=== PATIENT | female | born 1940 | race Caucasian/White ===

== ENCOUNTER → 2016-07-15 | Outpatient (CLI) | payer MEDICARE, OTHER | END | disposition home or self-care (01) | LOC: RAD 11:46 | PROVIDERS: ATTEND Internal Medicine | DX: J18.9 Pneumonia, unspecified organism (principal); J44.9 Chronic obstructive pulmonary disease, unspecified; I70.0 Atherosclerosis of aorta | CPT/HCPCS: 71020 ==

== ENCOUNTER 2017-08-14 09:31 | Day surgery (SDC) | payer MEDICARE, OTHER ==
[~2017-08-14] VITALS: Ht 154.9 cm; Wt 72.7 kg
[2017-08-14] MEDS ORDERED: SODIUM CHLORIDE 0.9% 1,000 ML IV ONE (09:56)
[2017-08-14 10:00] VITALS: BP 149/61
[2017-08-14] MEDS ORDERED: GLUC1TAB55 PO (10:29)
[2017-08-14] MEDS ORDERED: NITR100C56 PO (10:29)
[2017-08-14] MEDS ORDERED: LISI-170 PO (10:29)
[2017-08-14] MEDS ORDERED: SOTA80TA PO (10:29)
[2017-08-14] MEDS ORDERED: POTA10CA PO (10:29)
[2017-08-14] MEDS ORDERED: CALC1TAB58 PO (10:29)
[2017-08-14] MEDS ORDERED: PYRI100T2 PO (10:29)
[2017-08-14] MEDS ORDERED: CHOL5000 PO (10:29)
[2017-08-14] MEDS ORDERED: MULT-658 PO (10:29)
[2017-08-14] MEDS ORDERED: METO25TA91 PO (10:29)
[2017-08-14] MEDS ORDERED: LACT1CAP5 PO (10:29)
[2017-08-14] MEDS ORDERED: FOLI-17 PO (10:29)
[2017-08-14] MEDS ORDERED: ALBU8.5H8 INH (10:29)
[2017-08-14] MEDS ORDERED: FLUT12HF2 INH (10:29)
[2017-08-14] MEDS ORDERED: CYAN100074 PO (10:29)
[2017-08-14] MEDS ORDERED: IBRU140C PO (10:29)
[2017-08-14] MEDS ORDERED: WARF4TAB7 PO (10:29)
[2017-08-14] MEDS ORDERED: OMEP20TA62 PO (10:29)
[2017-08-14] MEDS ORDERED: CHLO25TA PO (10:29)
[2017-08-14] MEDS ORDERED: PLEASE ENTER HEIGHT AND WEIGHT MC SCH (10:30)
[2017-08-14 10:58] LABS: MEAN CORPUSCULAR HEMOGLOBIN 32.2 pg (27.0-34.8); MEAN CORPUSCULAR HGB CONC 33.3 g/dL (32.4-35.8); MEAN CORPUSCULAR VOLUME 96.9 fL (80-100); MEAN PLATELET VOLUME 9.9 fL (7.4-10.4); PLATELET COUNT 252 x10^3/uL (130-400); RED BLOOD COUNT 4.87 x10^6/uL (3.82-5.3); RED CELL DISTRIBUTION WIDTH 15.4 % (9.6-15.2)
[2017-08-14] MEDS ORDERED: VERAPAMIL 2.5 MG/ML, 2ML ONE (10:59)
[2017-08-14] MEDS ORDERED: NITROGLYCERIN 5 MG/ML, 10ML ONE (10:59)
[2017-08-14] MEDS ORDERED: FENTANYL PF 100 MCG/2ML ONE (10:59)
[2017-08-14] MEDS ORDERED: MIDAZOLAM 1 MG/ML, 5ML ONE (10:59)
[2017-08-14] MEDS ORDERED: HEPARIN 1,000 UNITS/ML, 10ML ONE (10:59)
[2017-08-14] MEDS ORDERED: LIDOCAINE 2%, 2ML ONE (11:00)
[2017-08-14 11:05] LABS: INTERNATIONAL NORMALIZED RATIO 1.85 (0.93-1.1); PROTHROMBIN TIME 18.8 Seconds (9.6-11.5)
[2017-08-14 11:08] LABS: ANION GAP 5 mmol/L (5-15); CALCIUM 10.7 mg/dL (8.5-10.1); CHLORIDE 106 mmol/L (98-107); CREATININE 1.29 mg/dL (0.55-1.02)
[2017-08-14 11:40] LABS: BASOPHILS # (AUTO) 0.04 x10^3/uL (0-0.1); BASOPHILS % (AUTO) 0 % (0-1); EOSINOPHILS # (AUTO) 0.19 x10^3/uL (0-0.4); EOSINOPHILS % (AUTO) 2 % (1-7); LYMPHOCYTES # (AUTO) 2.55 x10^3/uL (1-3.4); LYMPHOCYTES % (AUTO) 29 % (22-44); MD SCAN; MONOCYTES % (AUTO) 17 % (2-9); NEUTROPHILS # (AUTO) 4.57 x10^3/uL (1.8-6.8); NEUTROPHILS % (AUTO) 52 % (42-75)
[2017-08-14] MEDS ORDERED: SODIUM CHLORIDE 0.9% 1,000 ML IV SCH (11:52)
== END 2017-08-14 14:22 ==
LOC: CACL 09:31
PROVIDERS: ATTEND Internal Medicine Cardiovascular Disease
DX: I27.20 Pulmonary hypertension, unspecified (principal); I48.0 Paroxysmal atrial fibrillation; I35.0 Nonrheumatic aortic (valve) stenosis; I10 Essential (primary) hypertension; Z91.030 Bee allergy status
CPT/HCPCS: 36415; 80048; 85025; 85610; 85730; 93456; 99156; C1769; C1894; J1644; J2250; J3010; J3490; Q9967

== ENCOUNTER 2017-09-05 07:21 | Inpatient (IN) | payer MEDICARE, OTHER ==
[~2017-09-05] VITALS: Ht 154.9 cm; Wt 76.4 kg
[~2017-09-05 07:21] MED LIST: ALBU8.5H8 INH; CALC1TAB58 PO; CHLO25TA PO; CHOL5000 PO; CYAN100074 PO; FLUT12HF2 INH; FOLI-17 PO; GLUC1TAB55 PO; IBRU140C PO; LACT1CAP5 PO; LISI-170 PO; METO25TA91 PO; MULT-658 PO; NITR100C56 PO; OMEP20TA62 PO; POTA10CA PO; PYRI100T2 PO; SOTA80TA PO; WARF4TAB65 PO
[2017-09-05] MEDS ORDERED: SODIUM CHLORIDE 0.9% 1,000 ML IV ONE (07:46)
[2017-09-05] MEDS ORDERED: CHLORHEXIDINE 15 ML BOTTLE MM PRN (08:00)
[2017-09-05] MEDS ORDERED: ONDANSETRON 2MG/ML, 2ML IVPush PRN (08:00)
[2017-09-05 08:16] VITALS: BP 154/69
[2017-09-05 08:30] LABS: ALANINE AMINOTRANSFERASE 29 U/L (12-78); ALBUMIN 3.9 g/dL (3.4-5.0); ANION GAP 8 mmol/L (5-15); CALCIUM 11.3 mg/dL (8.5-10.1); CHLORIDE 109 mmol/L (98-107); CREATININE 1.21 mg/dL (0.55-1.02)
[2017-09-05] MEDS ORDERED: PLEASE ENTER ALLERGIES MC SCH (08:30)
[2017-09-05] MEDS ORDERED: PLEASE ENTER HEIGHT AND WEIGHT MC SCH (08:30)
[2017-09-05 08:31] LABS: INTERNATIONAL NORMALIZED RATIO 1.29 (0.93-1.1); PROTHROMBIN TIME 13.3 Seconds (9.6-11.5)
[2017-09-05 08:33] LABS: ALKALINE PHOSPHATASE 71 U/L (45-117); BILIRUBIN,TOTAL 0.5 mg/dL (0.2-1.0); TOTAL PROTEIN 7.3 g/dL (6.4-8.2)
[2017-09-05 08:34] LABS: MEAN CORPUSCULAR HEMOGLOBIN 32.6 pg (27.0-34.8); MEAN CORPUSCULAR HGB CONC 33.3 g/dL (32.4-35.8); MEAN CORPUSCULAR VOLUME 98.1 fL (80-100); MEAN PLATELET VOLUME 9.2 fL (7.4-10.4); PLATELET COUNT 285 x10^3/uL (130-400); RED BLOOD COUNT 4.71 x10^6/uL (3.82-5.3); RED CELL DISTRIBUTION WIDTH 15.5 % (9.6-15.2)
[2017-09-05 09:02] LABS: MD YES
[2017-09-05 09:33] LABS: <PLATELET ESTIMATE> ADEQUATE; <PLT MORPHOLOGY> NORMAL PLT MORPH; <RBC MORPHOLOGY> NORMAL; EOS#(MANUAL) 0.16 x10^3/uL (0.0-0.4); EOS% (MANUAL) 2 % (1-7); LYMPH#(MANUAL) 3.56 x10^3/uL (1-3.4); LYMPHS% (MANUAL) 44 % (22-44); MONOS#(MANUAL) 2.11 x10^3/uL (0.3-2.7); MONOS% (MANUAL) 26 % (2-9); SEG#(MANUAL) 2.27 x10^3/uL (1.8-6.8); SEGS% (MANUAL) 28 % (42-75)
[2017-09-05 09:34] LABS: HOWELL-JOLLY BODIES 1+
[2017-09-05] MEDS ORDERED: FENTANYL PF 250 MCG/5ML ONE (09:58)
[2017-09-05] MEDS ORDERED: SUCCINYLCHOLINE 20 MG/ML, 10ML ONE (10:18)
[2017-09-05] MEDS ORDERED: PROPOFOL 10 MG/ML, 20ML ONE (10:18)
[2017-09-05] MEDS ORDERED: CEFAZOLIN 1,000 MG ONE (10:18)
[2017-09-05] MEDS ORDERED: ROCURONIUM 10 MG/ML,10ML ONE (10:47)
[2017-09-05] MEDS ORDERED: DEXAMETHASONE 4 MG/ML, 1ML ONE (10:47)
[2017-09-05] MEDS ORDERED: SODIUM CHLORIDE 0.9% 1,000 ML IV SCH (11:55)
[2017-09-05] MEDS ORDERED: DEXTROSE 50%, 50ML SYRINGE IVPush PRN (12:00)
[2017-09-05] MEDS: SODIUM CHLORIDE FLUSH 10ML SYR IVF SCH ×2 (12:00→21:05)
[2017-09-05] MEDS ORDERED: GLUCAGON 1 MG IM PRN (12:00)
[2017-09-05] MEDS ORDERED: DEXTROSE 4 GM TAB.CHEW PO PRN (12:00)
[2017-09-05] MEDS: ALBUTEROL SULFATE 2.5 MG/3 ML NPPB SCH ×3 (13:00→21:00)
[2017-09-05] MEDS ORDERED: ENALAPRILAT 1.25 MG/ML, 2ML ONE (14:18)
[2017-09-05] MEDS ORDERED: HYDROcodone/APAP 5/325 TABLET ONE (14:19)
[2017-09-05] MEDS: HYDROcodone/APAP 5/325 TABLET PO PRN ×2 (14:26→17:50)
[2017-09-05] MEDS ORDERED: ENALAPRILAT 1.25 MG/ML, 2ML IV PRN (14:30)
[2017-09-05] MEDS ORDERED: LABETALOL 5MG/ML, 20ML IVPush PRN (14:30)
[2017-09-05] MEDS ORDERED: AMLODIPINE 5 MG TABLET ONE (14:57)
[2017-09-05] MEDS ORDERED: AMLODIPINE 5 MG TABLET PO ONE (15:00)
[2017-09-05] MEDS: CHLORTHALIDONE 25 MG TABLET PO SCH (18:37)
[2017-09-05] MEDS: SOTALOL 80MG TABLET PO SCH (20:52)
[2017-09-05] MEDS: LISINOPRIL 20 MG TABLET PO SCH (21:06)
[2017-09-06] MEDS: ALBUTEROL SULFATE 2.5 MG/3 ML NPPB SCH (01:00)
[2017-09-06 04:00] VITALS: BP 118/42
[2017-09-06 04:38] LABS: ALBUMIN 2.8 g/dL (3.4-5.0); ANION GAP 7 mmol/L (5-15); CALCIUM 8.9 mg/dL (8.5-10.1); CHLORIDE 111 mmol/L (98-107)
[2017-09-06 04:40] LABS: MEAN CORPUSCULAR HEMOGLOBIN 33.2 pg (27.0-34.8); MEAN CORPUSCULAR HGB CONC 33.6 g/dL (32.4-35.8); MEAN CORPUSCULAR VOLUME 98.7 fL (80-100); MEAN PLATELET VOLUME 9.1 fL (7.4-10.4); PLATELET COUNT 182 x10^3/uL (130-400); RED BLOOD COUNT 3.26 x10^6/uL (3.82-5.3); RED CELL DISTRIBUTION WIDTH 15.3 % (9.6-15.2)
[2017-09-06 04:41] LABS: CREATININE 0.91 mg/dL (0.55-1.02)
[2017-09-06] MEDS ORDERED: ALBUTEROL SULFATE 2.5 MG/3 ML NPPB PRN (05:00)
[2017-09-06 05:01] LABS: BASOPHILS # (AUTO) 0.05 x10^3/uL (0-0.1); BASOPHILS % (AUTO) 0 % (0-1); EOSINOPHILS # (AUTO) 0.01 x10^3/uL (0-0.4); EOSINOPHILS % (AUTO) 0 % (1-7); LYMPHOCYTES # (AUTO) 1.95 x10^3/uL (1-3.4); LYMPHOCYTES % (AUTO) 16 % (22-44); MD SCAN; MONOCYTES # (AUTO) 1.58 x10^3/uL (0.2-0.8); MONOCYTES % (AUTO) 13 % (2-9); NEUTROPHILS # (AUTO) 8.97 x10^3/uL (1.8-6.8); NEUTROPHILS % (AUTO) 71 % (42-75)
[2017-09-06] MEDS ORDERED: OMEPRAZOLE 20 MG CAPSULE.DR PO SCH (07:30)
[2017-09-06] MEDS: SOTALOL 80MG TABLET PO SCH (08:34)
[2017-09-06] MEDS ORDERED: MULTIVITAMIN 1 TABLET PO SCH (09:00)
[2017-09-06] MEDS ORDERED: CLOPIDOGREL 75 MG TABLET PO SCH (09:00)
[2017-09-06] MEDS ORDERED: LACTOBACILLUS CHEW TABLET PO SCH (09:00)
[2017-09-06] MEDS ORDERED: CHOLECALCIFEROL 1,000 UNIT TABLET PO SCH (09:00)
[2017-09-06] MEDS ORDERED: CALCIUM/VITAMIN D3 250-125 TABLET PO SCH (09:00)
[2017-09-06] MEDS ORDERED: POTASSIUM CHLORIDE 10 MEQ TABLET.ER PO SCH (09:00)
[2017-09-06] MEDS ORDERED: TEMPLATE NON-FORMULARY MED. (Glucosamine/D3/Boswellia Serra** (Osteo Bi-Flex Caplet**) 1 T PO SCH (09:00)
[2017-09-06] MEDS ORDERED: ASPIRIN 81 MG TABLET EC PO SCH (09:00)
[2017-09-06] MEDS ORDERED: IBRUTINIB 140 MG PO SCH (09:00)
[2017-09-06] MEDS ORDERED: PYRIDOXINE 50MG TABLET PO SCH (09:00)
[2017-09-06] MEDS ORDERED: FOLIC ACID 1 MG TABLET PO SCH (09:00)
[2017-09-06] MEDS: CHLORTHALIDONE 25 MG TABLET PO SCH (11:13)
[2017-09-06] MEDS: LISINOPRIL 20 MG TABLET PO SCH (11:22)
[2017-09-06] MEDS: SODIUM CHLORIDE FLUSH 10ML SYR IVF SCH (11:22)
[2017-09-06] MEDS ORDERED: CLOP75TA PO (12:45)
[2017-09-06 14:00] VITALS: BP 114/77
== END 2017-09-06 18:16 | disposition home or self-care (01) | DRG 266 ==
LOC: ORIP 07:21 → CCU 12:36 → 5SO 09-06 11:57
PROVIDERS: ADMIT Internal Medicine Cardiovascular Disease; ATTEND Internal Medicine Cardiovascular Disease
PROC: B246ZZ4 Ultrasonography of Right and Left Heart, Transesophageal (ICD-10-PCS; 2017-09-05)
PROC: 5A1223Z Performance of Cardiac Pacing, Continuous (ICD-10-PCS; 2017-09-05)
PROC: 02RF38Z Replacement of Aortic Valve with Zooplastic Tissue, Percutaneous Approach (ICD-10-PCS; principal; 2017-09-05 10:00)
DX: I35.0 Nonrheumatic aortic (valve) stenosis (principal); Z00.6 Encounter for examination for normal comparison and control in clinical research program; I50.33 Acute on chronic diastolic (congestive) heart failure; I44.2 Atrioventricular block, complete; D68.69 Other thrombophilia; I50.32 Chronic diastolic (congestive) heart failure; I48.0 Paroxysmal atrial fibrillation; J44.9 Chronic obstructive pulmonary disease, unspecified; I11.0 Hypertensive heart disease with heart failure; Z88.8 Allergy status to other drugs, medicaments and biological substances; I45.9 Conduction disorder, unspecified; Z79.01 Long term (current) use of anticoagulants; Z86.718 Personal history of other venous thrombosis and embolism; Z87.891 Personal history of nicotine dependence
CPT/HCPCS: 33361; 36415; 80048; 80053; 82040; 85025; 85347; 85610; 85730; 86850; 86900; 86923; 87081; 93005; 93306; 93312; 93321; 93325; 93355; 94640; C1760; C1769; C1894; J0690; J1100; J2704; J3010; J7613; J0330; J7030; Q9967

== ENCOUNTER → 2017-11-06 | Outpatient (CLI) | payer MEDICARE, OTHER ==
[~2017-11-06] MED LIST changes: +CLOP75TA PO
== END | disposition home or self-care (01) ==
LOC: CVU 11:55
PROVIDERS: ATTEND Internal Medicine Cardiovascular Disease
DX: I35.1 Nonrheumatic aortic (valve) insufficiency (principal); I34.0 Nonrheumatic mitral (valve) insufficiency; I10 Essential (primary) hypertension; Z85.6 Personal history of leukemia
CPT/HCPCS: 93306

== ENCOUNTER 2018-01-29 14:43 | Inpatient (IN) | payer MEDICARE, OTHER ==
[~2018-01-29] VITALS: Ht 154.9 cm; Wt 74.0 kg
[2018-01-29 15:23] LABS: MEAN CORPUSCULAR HEMOGLOBIN 31.6 pg (27.0-34.8); MEAN CORPUSCULAR HGB CONC 32.6 g/dL (32.4-35.8); MEAN CORPUSCULAR VOLUME 96.8 fL (80-100); PLATELET COUNT 193 x10^3/uL (130-400); RED BLOOD COUNT 4.27 x10^6/uL (3.82-5.3); RED CELL DISTRIBUTION WIDTH 15.1 % (9.6-15.2)
[2018-01-29 15:32] LABS: ALANINE AMINOTRANSFERASE 27 U/L (12-78); ALBUMIN 3.8 g/dL (3.4-5.0); ANION GAP 7 mmol/L (5-15); CALCIUM 9.6 mg/dL (8.5-10.1); CHLORIDE 108 mmol/L (98-107); CREATININE 1.22 mg/dL (0.55-1.02)
[2018-01-29 15:36] LABS: ALKALINE PHOSPHATASE 83 U/L (45-117); BILIRUBIN,TOTAL 0.6 mg/dL (0.2-1.0); TROPONIN I 0.017 ng/mL (0.000-0.045)
[2018-01-29 16:01] LABS: INTERNATIONAL NORMALIZED RATIO 3.12 (0.93-1.1); PROTHROMBIN TIME 31.4 Seconds (9.6-11.5)
[2018-01-29 16:07] LABS: BASOPHILS % (AUTO) 1 % (0-1); EOSINOPHILS # (AUTO) 0.19 x10^3/uL (0-0.4); EOSINOPHILS % (AUTO) 1 % (1-7); LYMPHOCYTES # (AUTO) 3.48 x10^3/uL (1-3.4); LYMPHOCYTES % (AUTO) 26 % (22-44); MD SCAN; MONOCYTES # (AUTO) 1.63 x10^3/uL (0.2-0.8); MONOCYTES % (AUTO) 12 % (2-9); NEUTROPHILS # (AUTO) 7.93 x10^3/uL (1.8-6.8); NEUTROPHILS % (AUTO) 60 % (42-75)
[2018-01-29] MEDS ORDERED: PHYTONADIONE 10 MG/ML, 1ML SQ ONE (16:30)
[2018-01-29] MEDS ORDERED: ONDANSETRON 2MG/ML, 2ML IVPush PRN (17:00)
[2018-01-29] MEDS ORDERED: morphine SULFATE 10 MG/ML, 1ML IVPush PRN (17:00)
[2018-01-29] MEDS ORDERED: ACETAMINOPHEN 325 MG TABLET PO PRN (17:00)
[2018-01-29] MEDS ORDERED: ONDANSETRON ODT 4 MG PO PRN (17:00)
[2018-01-29 17:24] LABS: FREE T4 (FREE THYROXINE) 1.09 ng/dL (0.76-1.46); THYROID STIMULATING HORMONE 1.2 mIU/L (0.358-3.740)
[2018-01-29 17:44] VITALS: BP 155/71
[2018-01-29 17:46] VITALS: BP 134/78
[2018-01-29 17:48] VITALS: BP 139/89
[2018-01-29] MEDS: SODIUM CHLORIDE 0.9% 1,000 ML IV SCH (18:34)
[2018-01-29 18:47] LABS: MICROSCOPIC AUTO
[2018-01-29 18:48] LABS: CULTURE INDICATED? YES
[2018-01-29 19:53] VITALS: BP 128/64
[2018-01-29 19:56] VITALS: BP 115/71
[2018-01-29 19:57] VITALS: BP 130/81
[2018-01-29] MEDS ORDERED: ALBUTEROL SULFATE 2.5 MG/3 ML HHN PRN (22:41)
[2018-01-30] VITALS (8 sets, daily range): BP systolic 137–171; BP diastolic 57–75
[2018-01-30 05:32] LABS: MEAN CORPUSCULAR HEMOGLOBIN 32.2 pg (27.0-34.8); MEAN CORPUSCULAR HGB CONC 33.7 g/dL (32.4-35.8); MEAN CORPUSCULAR VOLUME 95.8 fL (80-100); MEAN PLATELET VOLUME 10.5 fL (7.4-10.4); PLATELET COUNT 160 x10^3/uL (130-400); RED BLOOD COUNT 3.74 x10^6/uL (3.82-5.3); RED CELL DISTRIBUTION WIDTH 14.9 % (9.6-15.2)
[2018-01-30 05:41] LABS: ANION GAP 5 mmol/L (5-15); CALCIUM 8.4 mg/dL (8.5-10.1); CHLORIDE 109 mmol/L (98-107); CREATININE 0.92 mg/dL (0.55-1.02)
[2018-01-30 05:46] LABS: INTERNATIONAL NORMALIZED RATIO 2.7 (0.93-1.1); PROTHROMBIN TIME 27.3 Seconds (9.6-11.5)
[2018-01-30 06:10] LABS: MD MORPH REVIEW ONLY
[2018-01-30 06:11] LABS: ANISOCYTOSIS 1+; BASOPHILS # (AUTO) 0.06 x10^3/uL (0-0.1); BASOPHILS % (AUTO) 1 % (0-1); EOSINOPHILS # (AUTO) 0.26 x10^3/uL (0-0.4); EOSINOPHILS % (AUTO) 2 % (1-7); LYMPHOCYTES # (AUTO) 2.63 x10^3/uL (1-3.4); LYMPHOCYTES % (AUTO) 23 % (22-44); MONOCYTES # (AUTO) 1.51 x10^3/uL (0.2-0.8); MONOCYTES % (AUTO) 13 % (2-9); NEUTROPHILS # (AUTO) 7.09 x10^3/uL (1.8-6.8); NEUTROPHILS % (AUTO) 61 % (42-75); OVALOCYTES 1+
[2018-01-30 06:12] LABS: <PLATELET ESTIMATE> ADEQUATE; <PLT MORPHOLOGY> NORMAL PLT MORPH; POLYCHROMASIA 1+; SCHISTOCYTES 1+
[2018-01-30] MEDS: SODIUM CHLORIDE 0.9% 1,000 ML IV SCH (06:19)
[2018-01-30] MEDS: MULTIVITAMIN 1 TABLET PO SCH (08:03)
[2018-01-30] MEDS: CHOLECALCIFEROL 5,000u TAB PO SCH (08:04)
[2018-01-30] MEDS: FOLIC ACID 1 MG TABLET PO SCH (08:04)
[2018-01-30] MEDS: LACTOBACILLUS CHEW TABLET PO SCH (08:05)
[2018-01-30] MEDS: PYRIDOXINE 50MG TABLET PO SCH (08:06)
[2018-01-30] MEDS: SENNA/DOCUSATE TABLET PO SCH (08:06)
[2018-01-30] MEDS: OMEPRAZOLE 20 MG CAPSULE.DR PO SCH (08:07)
[2018-01-30] MEDS: CALCIUM/VITAMIN D3 250-125 TABLET PO SCH (08:17)
[2018-01-30] MEDS ORDERED: PHYTONADIONE 10 MG/ML, 1ML SQ ONE (08:30)
[2018-01-30] MEDS: FLUTICASONE/VILANTEROL 100-25MCG/INH INH SCH (12:00)
[2018-01-30] MEDS ORDERED: hydrALAzine 20 MG/ML, 1ML IV ONE (21:00)
[2018-01-31 02:05] VITALS: BP 154/69
[2018-01-31 05:26] LABS: INTERNATIONAL NORMALIZED RATIO 1.47 (0.93-1.1)
[2018-01-31 07:14] VITALS: BP 135/72
[2018-01-31] MEDS: SENNA/DOCUSATE TABLET PO SCH (07:27)
[2018-01-31] MEDS: OMEPRAZOLE 20 MG CAPSULE.DR PO SCH (08:26)
[2018-01-31] MEDS: FLUTICASONE/VILANTEROL 100-25MCG/INH INH SCH (08:26)
[2018-01-31] MEDS ORDERED: IBRUTINIB 140 MG PO SCH (09:00)
[2018-01-31] MEDS ORDERED: CEFAZOLIN PMX 1GM/50ML 50 ML IVPB ONE (10:00)
[2018-01-31] MEDS ORDERED: FENTANYL PF 100 MCG/2ML ONE ×2 (12:25→14:17)
[2018-01-31] MEDS ORDERED: CEFAZOLIN PMX 1GM/50ML 50 ML ONE (12:25)
[2018-01-31] MEDS ORDERED: MIDAZOLAM 1 MG/ML, 5ML ONE (12:25)
[2018-01-31] MEDS ORDERED: CEFAZOLIN 1,000 MG ONE (12:25)
[2018-01-31] MEDS ORDERED: HOLD MEDICATION MC PRN (15:00)
[2018-01-31] MEDS: CHOLECALCIFEROL 5,000u TAB PO SCH (16:07)
[2018-01-31] MEDS: FOLIC ACID 1 MG TABLET PO SCH (16:07)
[2018-01-31] MEDS: LACTOBACILLUS CHEW TABLET PO SCH (16:07)
[2018-01-31] MEDS: CALCIUM/VITAMIN D3 250-125 TABLET PO SCH (16:07)
[2018-01-31] MEDS: MULTIVITAMIN 1 TABLET PO SCH (16:07)
[2018-01-31] MEDS: PYRIDOXINE 50MG TABLET PO SCH (16:29)
[2018-01-31 16:32] VITALS: BP 136/66
[2018-01-31] MEDS ORDERED: CEFAZOLIN PMX 1GM/50ML 50 ML IVPB SCH (18:00)
[2018-01-31 19:01] VITALS: BP 157/76
[2018-01-31] MEDS: SODIUM CHLORIDE FLUSH 10ML SYR IVF SCH (21:49)
[2018-01-31] MEDS: CEFAZOLIN PMX 1GM/50ML 50 ML IVPB SCH (21:49)
[2018-02-01 01:19] VITALS: BP 135/72
[2018-02-01] MEDS: CEFAZOLIN PMX 1GM/50ML 50 ML IVPB SCH (05:44)
[2018-02-01 07:18] VITALS: BP 144/80
[2018-02-01] MEDS ORDERED: IMBRUVICA 140 MG HOMEMEDPO SCH (09:00)
[2018-02-01] MEDS: SENNA/DOCUSATE TABLET PO SCH (09:00)
[2018-02-01] MEDS: SODIUM CHLORIDE FLUSH 10ML SYR IVF SCH (09:00)
[2018-02-01] MEDS ORDERED: [UNRECOGNIZED DRUG - REMARK] XX PRN (09:00)
[2018-02-01] MEDS: CHOLECALCIFEROL 5,000u TAB PO SCH (09:52)
[2018-02-01] MEDS: FOLIC ACID 1 MG TABLET PO SCH (09:52)
[2018-02-01] MEDS: LACTOBACILLUS CHEW TABLET PO SCH (09:52)
[2018-02-01] MEDS: MULTIVITAMIN 1 TABLET PO SCH (09:52)
[2018-02-01] MEDS: OMEPRAZOLE 20 MG CAPSULE.DR PO SCH (09:52)
[2018-02-01] MEDS: CALCIUM/VITAMIN D3 250-125 TABLET PO SCH (09:52)
[2018-02-01] MEDS: PYRIDOXINE 50MG TABLET PO SCH (09:53)
[2018-02-01] MEDS: FLUTICASONE/VILANTEROL 100-25MCG/INH INH SCH (09:53)
== END 2018-02-01 13:18 | disposition home or self-care (01) | DRG 242 ==
LOC: ED 16:17 → EDIP 16:18 → ED 16:24 → 5SO 17:32 → DCLOUNGE 02-01 12:59
PROVIDERS: ADMIT Internal Medicine; ATTEND Internal Medicine
PROC: 0JH606Z Insertion of Pacemaker, Dual Chamber into Chest Subcutaneous Tissue and Fascia, Open Approach (ICD-10-PCS; principal; 2018-01-31)
PROC: 02HK3JZ Insertion of Pacemaker Lead into Right Ventricle, Percutaneous Approach (ICD-10-PCS; 2018-01-31)
PROC: 02H63JZ Insertion of Pacemaker Lead into Right Atrium, Percutaneous Approach (ICD-10-PCS; 2018-01-31)
DX: I44.1 Atrioventricular block, second degree (principal); N17.0 Acute kidney failure with tubular necrosis; J98.11 Atelectasis; I50.32 Chronic diastolic (congestive) heart failure; D68.59 Other primary thrombophilia; C91.11 Chronic lymphocytic leukemia of B-cell type in remission; S00.83XA Contusion of other part of head, initial encounter; I48.0 Paroxysmal atrial fibrillation; I35.0 Nonrheumatic aortic (valve) stenosis; J44.9 Chronic obstructive pulmonary disease, unspecified; G89.29 Other chronic pain; I11.0 Hypertensive heart disease with heart failure; I87.2 Venous insufficiency (chronic) (peripheral); I87.8 Other specified disorders of veins; S40.022A Contusion of left upper arm, initial encounter; X58.XXXA Exposure to other specified factors, initial encounter; Z79.01 Long term (current) use of anticoagulants; Z86.718 Personal history of other venous thrombosis and embolism; Z87.891 Personal history of nicotine dependence; Z95.2 Presence of prosthetic heart valve; Z99.81 Dependence on supplemental oxygen; W18.39XA Other fall on same level, initial encounter; Y93.89 Activity, other specified; Y92.89 Other specified places as the place of occurrence of the external cause
CPT/HCPCS: 33208; 36415; 70450; 70486; 71045; 72125; 80048; 80053; 81001; 84439; 84443; 84484; 85025; 85610; 87086; 90656; 93005; 99156; 99157; 99285; C1779; C1785; C1892; G0378; J0690; J2250; J3010; J3430; J7030

== ENCOUNTER 2018-10-05 06:02 | Day surgery (SDC) | payer MEDICARE, OTHER ==
[~2018-10-05] VITALS: Ht 154.9 cm; Wt 71.8 kg
[2018-10-05] MEDS ORDERED: SODIUM CHLORIDE 0.9% 1,000 ML IV ONE (06:30)
[2018-10-05 06:43] VITALS: BP 157/69
[2018-10-05] MEDS ORDERED: DILT120T3 PO (06:51)
[2018-10-05] MEDS ORDERED: MAGN400T36 PO (06:51)
[2018-10-05] MEDS ORDERED: IPRA30SP NAS (06:51)
[2018-10-05] MEDS ORDERED: ALBUTEROL/IPRATROPIUM 2.5MG/0.5MG, 3 ML NPPB PRN (08:30)
[2018-10-05] MEDS ORDERED: PROPOFOL 10 MG/ML, 20ML ONE (15:19)
== END 2018-10-05 13:29 | disposition home or self-care (01) ==
LOC: CACL 06:02
PROVIDERS: ATTEND Internal Medicine Cardiovascular Disease
DX: I08.1 Rheumatic disorders of both mitral and tricuspid valves (principal); I48.0 Paroxysmal atrial fibrillation; J44.9 Chronic obstructive pulmonary disease, unspecified; I44.1 Atrioventricular block, second degree; Z86.718 Personal history of other venous thrombosis and embolism; Z88.6 Allergy status to analgesic agent; Z88.8 Allergy status to other drugs, medicaments and biological substances
CPT/HCPCS: 93312; 93321; 93325; 94640; J2704